=== PATIENT | female | born 2000 | race Caucasian/White ===

== ENCOUNTER 2022-01-11 18:53 | Emergency (ER) | payer SELFPAY | END 2022-01-11 21:08 | disposition home or self-care (01) | LOC: ERS 18:53 | DX: S80.01XA Contusion of right knee, initial encounter (principal); F17.210 Nicotine dependence, cigarettes, uncomplicated; W18.2XXA Fall in (into) shower or empty bathtub, initial encounter ==

== ENCOUNTER 2022-01-13 08:15 | Emergency (ER) | payer SELFPAY | END 2022-01-13 10:36 | disposition home or self-care (01) | LOC: ERS 08:15 | DX: M25.461 Effusion, right knee (principal); W18.30XA Fall on same level, unspecified, initial encounter; F17.210 Nicotine dependence, cigarettes, uncomplicated | CPT/HCPCS: 99283 ==